=== PATIENT | female | born 1950 | race African-American/Black ===

== ENCOUNTER 2016-11-08 16:28 | Inpatient (IN) | payer BC ==
--- NOTE | ~2016-11-08 | DS ---
Discharge Summary [facility] [address] [place]. [address] NAME: DOUG PICHARDO : 54 STATUS : DIS IN PAT#: [id number] AGE: 66 ADM/REG DATE : 11/08/16 MR#: [id number] REPORT SERV DATE: 12/11/16 DICTATED BY: DIMPLE FAULKNER DATE: 12/11/16 REPORT STATUS : Draft TRANSCRIBED BY: MANJEET DATE: 12/11/16 ADMISSION DATE: 11/08/2016 DISCHARGE DATE: 11/10/2016 SUMMARY Please see dictated H and P and consult notes for full patient presentation and history. BRIEF SUMMARY: The patient was a 66-year-old female with a history of type 2 diabetes, who initially presented to the hospital on 11/08/2016 after she had nausea and vomiting and then had a witnessed cardiac arrest. She was intubated and given CPR in the field with return of spontaneous circulation and then had another PEA arrest in our emergency room here. At that time, it was discovered that she had evidence of a GI bleed for which she underwent upper endoscopy emergently on arrival with bleeding esophagitis found following her arrest. The patient was evaluated by Neurology and was found to be clinically brain . This was explained to the family, and given this, the patient was terminally extubated on the 11/10/2016. Family was at the bedside and grieving appropriately. DICTATED BY: MD ADAM Blanca/MANJEET Dimple Faulkner MD / [id number] CC: Oleg Westbrook M.D. NO PCP
--- NOTE | ~2016-11-08 | CN ---
Consultation Report [facility] [address] [place]. [address] NAME: DOUG YANEZ : 54 STATUS : ADM IN PAT#: [id number] AGE: 66 ADM/REG DATE : 11/08/16 MR#: [id number] REPORT SERV DATE: 11/09/16 DICTATED BY: MICHEL NORIEGA DATE: 11/08/16 REPORT STATUS : Draft TRANSCRIBED BY: MODL DATE: 11/08/16 CONSULTATION NOTE DATE OF CONSULTATION: 11/08/2016 I was consulted for emergency room. ER physician called me this evening with a history of Ms. Yanez had coded at home and she was brought to the hospital ER unresponsive but resuscitated and also on ventilation support. Also gives history of bleeding through mouth and through the rectum and also had bunch of blood suctioned from G-tube also. HISTORY OF PRESENT COMPLAINT: Ms. Yanez is a 66-year-old female admitted with above history as per daughter and sister gave me some history that the patient coded at home and was resuscitated. She was not responsive. As far as past medical history, the patient has diabetes. History comes out from family members is very sketchy. She according to sister has been drinking one fifth or two fifths of alcohol every day for long years. They could not give any history of using any NSAIDs. They could not give me the primary care physician's name, but she is somehow getting diabetes medication from somewhere, and never had any endoscopy as far as sister and daughter know. Other than that, I really do not have much history on her. She has been intubated and unconscious. PAST MEDICAL HISTORY: Diabetes possible and other medical history is not clear. She has a history of alcohol abuse, not sure about any other drug use or any other nase-cdw-ndvevbr medication use. FAMILY HISTORY: Noncontributory. Diabetes runs in the family. SOCIAL HISTORY: As per my H and P. REVIEW OF SYSTEMS: Unable to obtain. PHYSICAL EXAMINATION: VITAL SIGNS: Blood pressure 134/73, pulse 96, saturation 97, respirations 18 per minute, on vent. She is totally supported by vent at this time, not sedated. HEENT: Pupils seem to be both dilated and fixed. HEART: S1, S2. Regular rate and rhythm. ABDOMEN: Soft, somewhat protuberant. No bowel sounds present. NEUROLOGIC: She is in coma, so cannot elicit any neurological exam at this time. LABORATORY DATA: Sodium 132, potassium 3.9, BUN 28, creatinine 2.64, glucose 327, calcium 6.8, albumin 2.5, magnesium 2.1. Alkaline phosphatase 76, ALT 67, AST 308, lipase 118, CPK 7383. Troponin 0.07. TSH 0.674. Lactate 7.5, at one point it was 16.9. WBC of 13.7; hemoglobin 14.9, at one point, it was 11.6, I am not sure whether she received any blood transfusion; hematocrit at this time is 44.2; MCV 92.9; RDW 13.9; platelet 180,000. PTT 25.4, PT 15.6, INR 1.3. Consultation Report [address] [place]. [address] NAME: DOUG YANEZ : 54 STATUS : ADM IN [facility]#: [id number] AGE: 66 ADM/REG DATE : 11/08/16 MR#: [id number] REPORT SERV DATE: 11/09/16 DICTATED BY: MICHEL NORIEGA DATE: 11/08/16 REPORT STATUS : Draft TRANSCRIBED BY: MANJEET DATE: 11/08/16 CT of the abdomen and pelvis noted to have dense airspace consolidative apical and posterior segmental right upper lobe either atelectasis or dense pneumonia, subsegmental atelectasis, small inferior, medial, superior segment, right lower lobe and inferior lingular segment, left lower lobe. ET tube tip 1 cm above the bernabe. CT of the abdomen and pelvis, no acute abdominal or pelvic pathology. There are few small diverticula in the ascending and descending colon and proximal sigmoid colon. No acute diverticulitis. Nonobstructive right nephrolithiasis. Central venous catheter entering the right common femoral vein keeping the right common iliac vein, bladder decompressed with Chavez catheter. Balloon-tipped rectal tube within the rectal vault. ASSESSMENT: Generalized bleeding from upper and lower bleeding, questionable history of nonsteroidal anti-inflammatory drug use, history of chronic alcohol abuse, found at home and called 911 and resuscitated. General condition is not good at this time with pupils both dilated and fixed. PLAN: At this time to evaluate this GI bleeding with upper endoscopy to start with. I discussed the whole issue with family including her general condition and also what I am planning to do including upper endoscopy. They understood it well and agreed with my plan. We will advise further after the procedure. PRANAV/MANJEET Michel Noriega M.D. / [id number] CC: Oleg Westbrook M.D.
--- NOTE | ~2016-11-08 | CN ---
Consultation Report [facility] [address] [place]. [address] NAME: DOUG YANEZ : 54 STATUS : ADM IN [facility]#: [id number] AGE: 66 ADM/REG DATE : 11/08/16 MR#: [id number] REPORT SERV DATE: 11/09/16 DICTATED BY: DORON CARRASCO DATE: 11/08/16 REPORT STATUS : Draft TRANSCRIBED BY: MODL DATE: 11/08/16 CONSULTATION DATE OF CONSULTATION: 11/08/2016 REASON FOR CONSULTATION: Ufr-cn-agejreaf cardiac arrest. HISTORY OF PRESENT ILLNESS: There is limited history as the patient is currently sedated and intubated status post cardiac arrest, without family at the bedside. Per report, the patient was at home in her usual state of health and was found down by her daughter who lives with her. She received about 18 minutes of chest compressions and had return of pulses. She was then transferred to an ambulance where she arrested a second time, and had return of spontaneous circulation after an undetermined time period. She was finally brought to [facility] ER and arrested a third time in the ER where she was coded for 17 minutes with an initial rhythm of PEA arrest, which was reported to be her initial rhythm for the prior two arrests. She otherwise is reported to have a history of hypertension and diabetes, but nothing otherwise. ALLERGIES: NOT AVAILABLE AT THIS TIME. FAMILY HISTORY: Unable to obtain due to the patient's status. SOCIAL HISTORY: Unable to obtain due to the patient's status. REVIEW OF SYSTEMS: As above. HOME MEDICATIONS: Not currently available. PHYSICAL EXAMINATION: VITAL SIGNS: BP 110/60; HR ranging from 110 to 120; sinus tachycardia on telemetry. GENERAL: Morbidly obese. Currently sedated and intubated. NEURO: Awake, alert and oriented x3; no focal deficits, appropriate mood. HEENT: Moist mucous membranes, anicteric sclerae, no nasal discharge. NECK: No JVD, no carotid bruit. LUNGS: ET tube in place. Currently on the ventilator. Coarse breath sounds throughout with rhonchi. Wheezes and rales are absent. CV: Tachycardic. Regular. Normal S1, S2. Possible pericardial rub is auscultated. There is a 2/6 systolic murmur at the cardiac apex. Bedside sonography was not useful due to the patient's body habitus. ABD: Soft, non-tender, non-distended, no rebound or guarding. EXT: Trace edema in her lower extremities bilaterally. Otherwise, 1+ pulses in the radial and dorsalis pedis regions bilaterally. SKIN: Warm, dry and intact; no rash. Consultation Report [facility] [id number] [place]. [address] NAME: DOUG YANEZ : 54 STATUS : ADM IN PAT#: [id number] AGE: 66 ADM/REG DATE : 11/08/16 MR#: [id number] REPORT SERV DATE: 11/09/16 DICTATED BY: DORON CARRASCO DATE: 11/08/16 REPORT STATUS : Draft TRANSCRIBED BY: MODL DATE: 11/08/16 PERTINENT TEST FINDINGS: Lactate 17, GFR 18, creatinine 2.64, albumin 2.5. Chest x-ray without acute cardiopulmonary abnormality; however, with poor inspiratory effort. EKG with sinus rhythm, occasional PACs, normal mean QRS axis, no pathologic Q-waves, no definitive ST T ischemic changes. Troponin 0.07. IMPRESSION AND PLAN: Ms. Yanez is a 66-year-old female with history of diabetes, hypertension, and morbid obesity as well as probable chronic kidney disease, who presents after out of hospital cardiac arrest (PEA) x3, now in shock with multiorgan failure. In reviewing her collective findings, I believe it is not likely that she has cardiac etiology for her arrest, in particular given PEA as her originating rhythm for her arrest, as well as no definitive ischemic changes on her EKG and troponin of only 0.07 at this point in time. Nevertheless, it will be helpful to trend her cardiac enzymes in addition to CK and MB fractions. I will check an EKG tomorrow morning as well as an echocardiogram. Given significant bright red blood per rectum and mouth, it will be helpful to have Gastroenterology evaluate her definitively for active significant GI bleed, which may very well be the causative factor here. Otherwise, wean pressors as tolerated per primary team. In addition, the cardiovascular medications as well as antiplatelet/anticoagulation are not able to currently be started in light of her GI bleed as well as shock status. However, once able, I will start medications when appropriate. VR/MODL Doron Carrasco MD / [id number] CC: Oleg Westbrook M.D.
--- NOTE | ~2016-11-08 | CN ---
Consultation Report [facility] [address] [place]. [address] NAME: DOUG PICHARDO : 54 STATUS : DIS IN PAT#: [id number] AGE: 66 ADM/REG DATE : 11/08/16 MR#: [id number] REPORT SERV DATE: 11/12/16 DICTATED BY: CHRISTY MANZO JR DATE: 11/09/16 REPORT STATUS : Draft TRANSCRIBED BY: MODL DATE: 11/09/16 NEPHROLOGY CONSULTATION DATE OF CONSULTATION: 11/09/2016 REQUESTING PHYSICIAN: Dr. Faulkner. REASON FOR CONSULTATION: Acute renal failure. ASSESSMENT: 1. Presumed acute renal failure, on top of chronic kidney disease. 2. Chronic kidney disease? Stage III with proteinuria. 3. Gyl-df-barostuh cardiac arrest, precipitant unknown, with unknown down time for resuscitation. 4. Repeated resuscitation attempt in the emergency room after pulseless electrical activity arrest. 5. Diffuse gastritis with oozing. 6. Duodenitis with oozing. 7. Features of gastrointestinal blood loss. 8. No demonstrable anemia at this time. 9. Presumed pre-hospital DESIRE inhibitor, according to available home medication list. RECOMMENDATIONS: I agree with the thoughts of other examiners that her prognosis for recovery is grim. Her blood pressure currently is maintained on vasopressors, but she has had sustained hypotensive episodes over the course of her hospitalization. Down time before resuscitation attempts, is unknown. No significant urinary output has yet been documented. I see no current indication of a diuretic trial. If no neurological function, renal replacement therapy will not be indicated. Diuretic challenge will be attempted. Neurology consult pending. Unfortunately, may not have much to offer this lady. HISTORY: A 66-year-old, obese diabetic female, who had been referred to our practice back in 04/2016, but was unable to make her appointment. She apparently experienced a slx-gx-cyqdxhng cardiac arrest with? some delay in resuscitative efforts until EMS arrived. Apparently, there was a subsequent arrest in the emergency room. She has undergone resuscitation, and is on vasopressor support. She had upper and lower GI tract bleeding, and has undergone endoscopy, I refer you to the endoscopist's note. She had hypertension, diabetes, obesity, and was treated for hypertension, diabetes, and apparent hyperlipidemia. PAST MEDICAL HISTORY: Essential hypertension, hyperlipidemia, type 2 diabetes, obesity, proteinuria. Consultation Report [facility] [address] [place]. [address] NAME: DOUG PICHARDO : 54 STATUS : DIS IN PAT#: [id number] AGE: 66 ADM/REG DATE : 11/08/16 MR#: [id number] REPORT SERV DATE: 11/12/16 DICTATED BY: CHRISTY MANZO JR DATE: 11/09/16 REPORT STATUS : Draft TRANSCRIBED BY: MANJEET DATE: 11/09/16 MEDICATIONS: Listed as lisinopril 10 mg daily, Norvasc 5 mg daily, Lipitor 80 mg daily, insulin. ALLERGIES: IDENTIFIED NONE. FAMILY HISTORY: Not available at this moment. SOCIAL HISTORY: Recorded by others is no tobacco or alcohol use. REVIEW OF SYSTEMS: Not available from the client. PHYSICAL EXAMINATION: GENERAL: This is a comatose obese female, on life support. Three pressors. Mechanically ventilated, endotracheally intubated. She has a new PIC in the left upper arm. Cranium is normocephalic. HEENT: No scleral icterus present. No periorbital edema. Jellico sclerae are noted. No nasal discharge or epistaxis. Oropharynx cannot be examined. NECK: Fat, cannot appreciate neck vein distention. I do not hear carotid bruits. LUNGS: Equal air entry on the ventilator, no rales, wheeze, or rhonchi. BREASTS: Not examined. HEART: Tones regular without rub, murmur, or gallops appreciable. ABDOMEN: Obese, distended, soft, somewhat tympanitic. No guarding or tenderness is appreciated. I cannot feel a liver edge. Suprapubically, there is no fullness or tenderness appreciated. A Chavez catheter is in place. Very scant urine production. EXTREMITIES: Without gross edema, there is no distal cyanosis. INTEGUMENT: There is no rash and the turgor is good. Skin is warm and dry. NEUROLOGICAL: She is unresponsive. PSYCHIATRIC: Cannot be assessed. Chest x-ray has been reviewed. Laboratory data has been reviewed. Other examiners notes have been reviewed. JOHNIE/MANJEET Christy Manzo Jr, M.D. / [id number] CC: Oleg Westbrook M.D. [facility]
--- NOTE | ~2016-11-08 | EGD ---
EGD REPORT [facility] [address] [place] [address] NAME: DOUG YANEZ : 54 STATUS : ADM IN PAT#: [id number] AGE: 66 ADM/REG DATE : 11/08/16 MR#: [id number] REPORT SERV DATE: 11/09/16 DICTATED BY: DEXTER NORIEGA DATE: 11/09/16 REPORT STATUS : Draft TRANSCRIBED BY: [employer] DATE: 11/09/16 [facility] Patient Name: Doug Yanez Date of : 1950 Attending MD: DEXTER NORIEGA MD Procedure Date No Time: 11/08/2016 Procedure: Upper GI endoscopy Indications: Hematemesis, Hematochezia, Active gastrointestinal bleeding Medicines: General Anesthesia Complications: No immediate complications. Procedure: After obtaining informed consent, the endoscope was passed under direct vision. Throughout the procedure, the patient's blood pressure, pulse, and oxygen saturations were monitored continuously. The GIF [id number] was introduced through the mouth, and advanced to the third part of duodenum. The upper GI endoscopy was technically difficult and complex due to excessive bleeding. Findings: {skip}edematous. LA Grade D (one or more mucosal breaks involving at least 75% of esophageal circumference) esophagitis with bleeding was found in the lower third of the esophagus. LA Grade C (one or more mucosal breaks continuous between tops of 2 or more mucosal folds, less than 75% circumference) esophagitis with bleeding was found in the middle third of the esophagus. Clotted blood was found in the cardia. Fluid aspiration was performed. Diffuse moderate inflammation with hemorrhage characterized by congestion (edema) and erythema was found in the entire examined stomach. Diffuse severely erythematous mucosa with active bleeding was found in the entire duodenum. Diffuse severe inflammation with hemorrhage characterized by congestion (edema), erosions, erythema and shallow ulcerations was found in the entire duodenum. Impression: - {skip}edematous. - LA Grade D esophagitis. - LA Grade C esophagitis. - Clotted blood in the cardia. Fluid aspiration performed. - Gastritis with hemorrhage. - Erythematous duodenopathy. - Duodenitis with hemorrhage. EGD REPORT [address] [address] NAME: DOUG YANEZ : 54 STATUS : ADM IN [facility]#: [id number] AGE: 66 ADM/REG DATE : 11/08/16 MR#: [id number] REPORT SERV DATE: 11/09/16 DICTATED BY: DEXTER NORIEGA DATE: 11/09/16 REPORT STATUS : Draft TRANSCRIBED BY: [email or web address] DATE: 11/09/16 Recommendation: - Use Protonix (pantoprazole) 80 mg IV daily daily. Procedure Code(s): --- Professional --- 79815, Esophagogastroduodenoscopy, flexible, transoral; diagnostic, including collection of specimen(s) by brushing or washing, when performed (separate procedure) Diagnosis Code(s): --- Professional --- K20.9, Esophagitis, unspecified K92.2, Gastrointestinal hemorrhage, unspecified K29.71, Gastritis, unspecified, with bleeding K31.89, Other diseases of stomach and duodenum K29.81, Duodenitis with bleeding K92.0, Hematemesis K92.1, Melena CPT copyright 2013 [employer]. All rights reserved. The codes documented in this report are preliminary and upon stationary fireman review may be revised to meet current compliance requirements. DEXTER NORIEGA MD 11/09/2016 1:15 PM This report has been signed electronically. Number of Addenda: 0 Note Initiated On: 11/09/2016 12:35 PM Scope Withdrawal Time 0 hours 0 minutes 0 seconds [address] [place] [id number]
--- NOTE | ~2016-11-08 | CN ---
Consultation Report [facility] [address] [place]. [address] NAME: DOUG PICHARDO : 54 STATUS : ADM IN PAT#: [id number] AGE: 66 ADM/REG DATE : 11/08/16 MR#: [id number] REPORT SERV DATE: 11/09/16 DICTATED BY: DATE: REPORT STATUS : Draft TRANSCRIBED BY: MODL DATE: 11/09/16 NEUROLOGY CONSULTATION DATE OF CONSULTATION: 11/09/2016 REASON FOR CONSULT: Anoxic encephalopathy, comatose state. HISTORY OF PRESENT ILLNESS: This is a 66-year-old female who presented to [facility] unresponsive, status post cardiopulmonary resuscitation. The patient was noted to have some nausea and vomiting on the morning of 11/08/2016. With the daughter next checking on her, the patient was found on the floor unresponsive. CPR was initiated and taken over upon EMS arrival. The patient was noted to be in ventricular tachycardia upon EMS evaluation, was resuscitated, intubated. Upon transfer and arrival to the emergency room, the patient required another resuscitation with the patient trying the PEA. The patient's heart rhythm returned after epinephrine as well as ACLS protocol. The patient has not received any sedation or paralytics and no hypothermia protocol was initiated. The patient since then was noted to have unresponsive pupil and no spontaneous movement. No myoclonus or seizure- like activity was otherwise observed. The patient does not appear to have spontaneous breathing above the ventilator settings. No significant change in her neuro status was otherwise noted since resuscitation. The patient was noted to have previous history of hypertension as well as diabetes. SOCIAL HISTORY: No tobacco, alcohol, or recreational drug usage was otherwise reported. No significant family history was reported per medical record. ALLERGIES: THE PATIENT WAS NOTED TO HAVE NO KNOWN DRUG ALLERGIES PER MEDICAL RECORD. REVIEW OF SYSTEMS: Review of systems otherwise unable to be obtained secondary to the patient's comatose state. MEDICATIONS: The patient's current medications consist of Dulera, DuoNeb, thiamine, Vibramycin, Protonix, Zosyn as well as norepinephrine and epinephrine. PHYSICAL EXAMINATION: VITAL SIGNS: Overnight patient was noted to have vital signs with T-max of 100.1, heart rate of 91 to 119, respirations of 16 to 18, and blood pressure of 85 to 162 over 52 to 76. GENERAL: The patient is well developed, well nourished, in no acute distress. CARDIOVASCULAR: Regular rate and rhythm. No carotid bruits were otherwise auscultated. PULMONARY: Examination was clear to auscultation bilaterally. NEUROLOGICAL EXAMINATION: The patient was comatose. No sedation or paralytics was noted. The patient was nonverbal and not following commands at the time of evaluation. Pupil was 4 mm, fixed, no reactivity was otherwise noted. No trpwi-lp-duvzow response was noted. No corneal reflex was noted bilaterally. The patient demonstrated no spontaneous horizontal or Consultation Report [address] [place]. [address] NAME: DOUG PICHARDO : 54 STATUS : ADM IN PAT#: [id number] AGE: 66 ADM/REG DATE : 11/08/16 MR#: [id number] REPORT SERV DATE: 11/09/16 DICTATED BY: DATE: REPORT STATUS : Draft TRANSCRIBED BY: MODL DATE: 11/09/16 vertical eye movement. Cold caloric test is otherwise negative with no eye movement with cold water stimulation to the ears. The patient demonstrated no gag reflex and no grimace to noxious stimulation in bilateral jaws. The patient demonstrated no withdrawal grimace, or posturing to noxious stimulation in all four extremities with the patient demonstrated areflexia throughout. No plantar reflex was otherwise obtained. LABORATORY STUDIES: At the time of evaluation demonstrated white blood cell count of 13.1, hemoglobin of 14.5, hematocrit of 43.4, platelet count of 156. Chemistry panel: Sodium of 133, potassium 3.3, chloride 193, bicarb 26, BUN of 30, creatinine of 2.81, glucose of 187, and calcium 7.0. Serum ABG demonstrated pH of 7.38, pCO2 of 36, PO2 of 82, bicarb of 20, and O2 saturation of 96.1. CT scan of the brain demonstrated diffuse decreased sulci as well as loss of hurley white matter differentiation concerning for diffuse cerebral edema. IMPRESSION: 1. Comatose state. The patient meets current brain criteria. By clinical exam, the patient demonstrated no brain stem reflex and no breathing above the ventilator settings which was set at 18 breaths per minute. No cranial nerve reflexes was otherwise obtained on clinical evaluation including cold caloric test. We will obtain EEG today for evaluation. If no brain activity was seen on EEG study, we are recommending apnea test and advised the family to withdraw care. RECOMMENDATIONS: 1. EEG today. 2. We will proceed with apnea test if no brain activity was otherwise noted on EEG study. [facility]/MODL Bernard Villavicencio MD / [id number] CC: Oleg Westbrook M.D.
--- NOTE | ~2016-11-08 | HP ---
History And Physical [place] [id number] [facility] [place]. [address] NAME: DOUG YANEZ : 54 STATUS : [facility]M [facility]#: [id number] AGE: 66 ADM/REG DATE : 11/08/16 MR#: [id number] REPORT SERV DATE: 11/09/16 DICTATED BY: OLEG QUINTANA DATE: 11/08/16 REPORT STATUS : Draft TRANSCRIBED BY: MODAna Maria DATE: 11/08/16 DATE OF ADMISSION: 11/08/2016 TIME: 1800 hours. LOCATION: Seen in ER #4. HISTORY OF PRESENT ILLNESS: Ms. Yanez is a 66-year-old female, who was home with her daughter today. According to the family, the patient had been a little bit nauseated and had some vomiting earlier this morning. Later in the day, she was with her daughter, the daughter went out of the room, came back, and found the patient collapsed on the floor. CPR was initiated. EMT arrived, they put her in the ambulance, she required intubation and another resuscitation attempt in the ambulance. They came and went to the ER. When she was being evaluated, she went into another PEA arrest, and was able to have return of circulation with epinephrine and ACLS protocol. She is also noting a GI bleed, appears to be upper and lower at this point in time. The patient is seen at the [facility] and has diabetes for which she takes insulin. Her medications are not readily available to me at this time. According to her family, however, she has no known allergies. PAST MEDICAL HISTORY: Significant for diabetes for which she does take insulin and hypertension. They deny any problems where she had a heart disease or strokes in the past, circulatory problems, or kidney problems. Nonsmoker as far as we know. Nondrinker. No operations in the past. ALLERGIES: NO KNOWN ALLERGIES. PHYSICAL EXAMINATION: VITAL SIGNS: Currently, on examination, the patient is on dopamine, orally intubated. Blood pressure 80/40, pulse 110, afebrile. HEENT: Head is normocephalic. Pupils are equal, however, doll's eyes are not present at this point in time. NECK: Very large. CHEST: No bilateral wheezing and rhonchi. CARDIAC: S1 and S2. No murmurs or gallops. ABDOMEN: Obese and nontender. No masses or organomegaly. EXTREMITIES: No clubbing, cyanosis, or edema. Pulses are palpable. NEUROLOGIC: She has some pupil reactivity at this time but no other reactivity. No response to painful stimuli. No reflexes. LABORATORY DATA: Chest x-ray is clear. The arterial blood gas post intubation is 7.16, PCO2 is 53, PO2 of 100, and base excess is -10. Sodium 128, potassium 3.8, glucose 218, and H and H 14 and 43 by I-STAT. Her creatinine is 2.64. Her BUN is 28. Calcium 6.8, total protein 5.8, albumin 2.5, total bilirubin 0.7, alkaline phosphatase 76, ALT 67, AST 178, lipase 118, and troponin 0.07. History And Physical [address] [address] NAME: DOUG YANEZ : 54 STATUS : [facility]#: [id number] AGE: 66 ADM/REG DATE : 11/08/16 MR#: [id number] REPORT SERV DATE: 11/09/16 DICTATED BY: OLEG QUINTANA DATE: 11/08/16 REPORT STATUS : Draft TRANSCRIBED BY: MODL DATE: 11/08/16 EKG done at 1635 hours shows evidence of a junctional tachycardia, premature atrial complexes, rightward axis, prolonged QT, abnormal ECG noted, not consistent with a STEMI. IMPRESSION: 1. Cardiac arrest, etiology unknown. 2. Gastrointestinal bleed, etiology unknown. 3. Morbid obesity. 4. Diabetes mellitus type 2. 5. History of hypertension. 6. Now evidence of cardiogenic shock. PLAN: Plan will be to CT her brain, make sure she has not had an intracerebral event to account for this. Continue Levophed. Will consult Cardiology to see. Attempt to maintain her blood pressure. She has a central line in place in her right femoral vein. She has an IO in place in the right tibia. RP/MODL Oleg Quintana M.D. / [id number] CC: Oleg Quintana M.D.
--- NOTE | ~2016-11-08 | EEG ---
Electroencephalogram [facility] [address] [place]. [address] NAME: DOUG PICHARDO : 54 STATUS : ADM IN PAT#: [id number] AGE: 66 ADM/REG DATE : 11/08/16 MR#: [id number] REPORT SERV DATE: 11/10/16 DICTATED BY: DATE: REPORT STATUS : Draft TRANSCRIBED BY: MODL DATE: 11/10/16 CLINICAL INDICATION: Comatose state post anoxic brain injury. DESCRIPTION: This EEG was performed using 10/20 electrode placement system. During the EEG study, the patient was noted to have EKG artifact persists throughout the EEG evaluation, otherwise no underlying background brain activity was seen. Photic stimulation was performed with no photic driving response. Nail bed pressure was applied to the bilateral upper extremity with the patient noted to have no brain reactivities. No brain activity was seen throughout the EEG evaluation. The patient remains in comatose state during the entire EEG study. INTERPRETATION: This EEG was obtained entirely during the comatose state may be considered abnormal secondary to lack of the brain activity as well as reactivity to stimulation consistent with brain EEG. Clinical correlation is recommended. [facility]/MODL Bernard Villavicencio MD / [id number] CC: Oleg Westbrook M.D.
--- NOTE | ~2016-11-08 | EHP ---
ER History and Physical [address] [place]. [address] NAME: DOUG PICHARDO : 54 STATUS : ADM IN PAT#: [id number] AGE: 66 ADM/REG DATE : 11/08/16 MR#: [id number] REPORT SERV DATE: 11/09/16 DICTATED BY: ALICE LAU DATE: 11/08/16 REPORT STATUS : Draft TRANSCRIBED BY: MODL DATE: 11/08/16 CHIEF COMPLAINT: CPR in progress. HISTORY OF PRESENT ILLNESS: The patient is a 66-year-old female who was found down by her daughter. Per the daughter, the patient was conversant when she walked into the house after work, she went to her bedroom to change and returned to the living room where her mother was to find the patient slumped over and unresponsive. No CPR was begun until EMS arrived. [facility] [employer] arrived and began ACLS CPR and the patient was then intubated by EMS. Brought here after several rounds of epinephrine and 1 amp of bicarb and the patient had returned of spontaneous circulation. On arrival here, the patient did have a pulse, however, shortly after that pulses were not palpable. CPR was begun immediately. You can see the ACLS code sheet for full details of her resuscitative efforts here. We were eventually able to get her return of spontaneous rhythm, appeared to be sinus rhythm with a decent blood pressure requiring a little bit of dopamine. On further evaluation on the patient here, she had had bowel incontinence that appeared to be bloody. This is strongly Hemoccult positive. NG tube was placed and revealed bright red blood in her stomach. I called and discussed this patient with Dr. Westbrook who has agreed to admit the patient. I also called Dr. Figueroa who is going to see the patient upon ICU arrival and do an endoscopic examination of her upper esophagus into stomach. See the paper chart for further details of the patient's history and physical. PAST MEDICAL HISTORY: Hypertension and diabetes. SOCIAL HISTORY: Nonsmoker. Lives with the family. PHYSICAL EXAMINATION: The patient was intubated on scene. Bilateral breath sounds were present upon arrival. However, she was pulseless. Her abdomen was soft and nondistended. Neurologically, she was flaccid with mid dilated pupils or sluggish to respond. No deformities of her musculoskeletal system. LABORATORY DATA: Data review after the patient's arrival here revealed the patient had hematocrit of 37 on arrival with acute renal failure. Hemoccult positive. ASSESSMENT: 1. Cardiac arrest. 2. Respiratory failure. 3. Likely upper gastrointestinal bleed. 4. Hypotensive shock. PLAN: We will place the patient on ICU. Dr. Westbrook from critical care, has actually seen the patient here in the ER. Discussed this patient with Dr. Figueroa, baseball hand sewer, who will come to evaluate the patient endoscopically upon arrival to the ICU. The patient is currently on dopamine for blood pressure support and the patient has been typed and crossed for transfusion. I suspect the patient's hypotension is likely multifactorial given her GI hemorrhage as well as probably some component of cardiogenic shock. ER History and Physical [address] [address] NAME: DOUG PICHARDO : 54 STATUS : ADM IN [facility]#: [id number] AGE: 66 ADM/REG DATE : 11/08/16 MR#: [id number] REPORT SERV DATE: 11/09/16 DICTATED BY: ALICE LAU DATE: 11/08/16 REPORT STATUS : Draft TRANSCRIBED BY: MANJEET DATE: 11/08/16 ALISA/MANJEET Alice Lau DO / [id number] CC: Oleg Westbrook M.D.
[2016-11-08 17:09] LABS: BASOPHILS 0.2 %; BASOPHILS ABSOLUTE 0.01 10/3/uL (0.0-0.16); EOSINOPHILS 0.3 %; EOSINOPHILS ABSOLUTE 0.02 10/3/uL (0.0-0.53); ER CBC TAT 0 Hrs 05 Mins; HEMATOCRIT 36.3 % (36.0-48.0); HEMOGLOBIN 11.6 g/dL (12.0-16.0); IMMATURE GRANULOCYTES 0.8 %; IMMATURE GRANULOCYTES ABSOLUTE 0.05 10/3/uL (0.0-0.11); LYMPHOCYTES ABSOLUTE 1.75 10/3/uL (0.67-4.30); MEAN CORPUSCULAR HEMOGLOB 31.1 pg (26.0-34.0); MEAN CORPUSCULAR VOLUME 97.3 fL (80-100); MEAN PLATELET VOLUME 9.4 fL (9.2-13.0); MONOCYTES 4.6 %; MONOCYTES ABSOLUTE 0.29 10/3/uL (0.21-1.20); NEUTROPHILS 66.1 %; NEUTROPHILS ABSOLUTE 4.13 10/3/uL (2.02-8.40); NUCLEATED RED BLOOD CELLS 0.9 /100WBC (0-0); PLATELET COUNT 155 10/3/uL (150-400); RED CELL COUNT 3.73 10/6/uL (4.0-5.6); WHITE BLOOD CELLS 6.3 10/3/uL (4.5-10.5)
[2016-11-08 17:10] LABS: MANUAL DIFF NO %
[2016-11-08 17:16] LABS: INTERNATIONAL NORMAL RATI 1.4 UNITS (-); PARTIAL THROMBO TIME 32.3 SEC (22.5-37.2); PROTIME (NOT ORD) 17.3 SEC (12.0-14.5)
[2016-11-08 17:28] LABS: A/G RATIO 0.8 (0.7-1.9); ALBUMIN 2.5 G/DL (3.5-5.0); ALKALINE PHOSPHATASE 76 U/L (45-117); BUN (BLOOD UREA NITROGEN) 28 MG/DL (6-23); CHLORIDE, SERUM 85 MMOL/L (96-112); CO2 (CARBON DIOXIDE) 17 MMOL/L (24-34); CREATININE 2.64 MG/DL (0.55-1.02); GFR AFRICAN AMERICAN 21 ML/MIN (>=60); GFR NON AFRICAN AMERICAN 18 ML/MIN (>=60); GLOBULIN 3.3 G/DL (2.5-4.1); GLUCOSE, SERUM 327 MG/DL (60-99); POTASSIUM, SERUM 3.8 MMOL/L (3.5-5.3); SODIUM, SERUM 130 MMOL/L (135-148); TOTAL BILIRUBIN 0.7 MG/DL (0-1.2); TOTAL PROTEIN 5.8 G/DL (6.0-8.5)
[2016-11-08 17:29] LABS: CALCIUM, SERUM 6.8 MG/DL (8.5-10.4)
[2016-11-08 17:30] LABS: TROPONIN I 0.07 NG/ML (<0.05)
[2016-11-08 17:31] LABS: SGPT(ALT) 67 U/L (5-65)
[2016-11-08 17:37] LABS: BAND NEUTROPHILS 11 %; EOSINOPHILS 1 %; EOSINOPHILS ABSOLUTE (CALC) 0.06 10/3/uL (0.0-0.53); ER DIFF TAT 0 Hrs 33 Mins; LYMPHOCYTES 16 %; LYMPHOCYTES ABSOLUTE (CALC) 1.01 10/3/uL (0.67-4.30); MONOCYTES 2 %; MONOCYTES ABSOLUTE (CALC) 0.13 10/3/uL (0.21-1.20); PLATELET ESTIMATE ADQ (ADEQUATE); RBC MORPHOLOGY NORM (NORMAL); SEGMENTED NEUTROPHIL (0) 70 %; TOTAL NUCLEATED CELLS 100
[2016-11-08 17:53] LABS: LACTATE 16.9 MMOL/L (0.3-2.4)
[2016-11-08 18:05] LABS: SGOT(AST) 178 U/L (5-40)
[2016-11-08 18:50] LABS: PROCALCITONIN 0.11 ng/mL (<0.5)
[2016-11-08 20:09] LABS: ALLENS TEST Pos; BE (BASE EXCESS) -3.6 MEQ/L (0 +/- 2.5); CARBOXYHEMOGLOBIN 0.8 % (0-3); HEMOBLOGIN CONTENT 15.5 G/DL (12-16); INSTRUMENT SERIAL # 35151; METHEMOGLOBIN 0.5 % (0-3); MODE CMV; O2 CONTENT 20.7 VOL% (18-24); OPERATOR ID 23712; PCO2 (CO2 TENSION) 47 MMHG (35-45); PO2 (O2 TENSION) 92 MMHG (79-93); SAMPLE Arterial; TIDAL VOLUME 500 ML; pH 7.31 (7.37-7.43)
[2016-11-08 20:19] LABS: BE (BASE EXCESS) -17.8 MEQ/L (0 +/- 2.5); CARBOXYHEMOGLOBIN 1.3 % (0-3); HCO3 (ACTUAL BICARBONATE) 11.8 MEQ/L (23-27); HEMOBLOGIN CONTENT 12.5 G/DL (12-16); INSTRUMENT SERIAL # 8087; METHEMOGLOBIN 0.4 % (0-3); O2 CONTENT 18.7 VOL% (18-24); PCO2 (CO2 TENSION) 42 MMHG (35-45); PO2 (O2 TENSION) 536 MMHG (79-93); SAMPLE Arterial; pH 7.07 (7.37-7.43)
[2016-11-08 20:38] LABS: BASOPHILS 0.1 %; BASOPHILS ABSOLUTE 0.01 10/3/uL (0.0-0.16); EOSINOPHILS 0 %; IMMATURE GRANULOCYTES 0.4 %; IMMATURE GRANULOCYTES ABSOLUTE 0.05 10/3/uL (0.0-0.11); LYMPHOCYTES 5.4 %; LYMPHOCYTES ABSOLUTE 0.74 10/3/uL (0.67-4.30); MEAN CORPUSCULAR HEMOGLOB 31.3 pg (26.0-34.0); MEAN PLATELET VOLUME 9.6 fL (9.2-13.0); MONOCYTES ABSOLUTE 0.41 10/3/uL (0.21-1.20); NEUTROPHILS 91.1 %; NEUTROPHILS ABSOLUTE 12.47 10/3/uL (2.02-8.40); PLATELET COUNT 180 10/3/uL (150-400); RBC DISTRIBUTION WIDTH 13.9 % (12.0-16.0)
[2016-11-08 20:43] LABS: RED CELL COUNT 4.76 10/6/uL (4.0-5.6); WHITE BLOOD CELLS 13.7 10/3/uL (4.5-10.5)
[2016-11-08 20:44] LABS: HEMATOCRIT 44.2 % (36.0-48.0); HEMOGLOBIN 14.9 g/dL (12.0-16.0); MANUAL DIFF NO %; MEAN CORPUS HGB CONC 33.7 g/dL (32.0-36.0); MEAN CORPUSCULAR VOLUME 92.9 fL (80-100)
[2016-11-08 20:47] LABS: INTERNATIONAL NORMAL RATI 1.3 UNITS (-); PARTIAL THROMBO TIME 25.4 SEC (22.5-37.2); PROTIME (NOT ORD) 15.6 SEC (12.0-14.5)
[2016-11-08 21:57] LABS: CK-MB 38.3 NG/ML; CPK 7383 U/L (0-200); POTASSIUM, SERUM 3.9 MMOL/L (3.5-5.3); SODIUM, SERUM 132 MMOL/L (135-148); ULTRASENSITIVE TSH 0.674 MCIU/ML (0.358-3.740)
[2016-11-08 21:58] LABS: CKMB INDEX (NOT ORD) 0.5; SGOT(AST) 308 U/L (5-40)
[2016-11-08 23:46] LABS: HEMATOCRIT 43.1 % (36.0-48.0); HEMOGLOBIN 14.6 g/dL (12.0-16.0)
[2016-11-08 23:58] LABS: INTERNATIONAL NORMAL RATI 1.4 UNITS (-); PARTIAL THROMBO TIME 27.8 SEC (22.5-37.2); PROTIME (NOT ORD) 16.7 SEC (12.0-14.5)
[2016-11-09 00:04] LABS: PHOSPHORUS, SERUM 3.4 MG/DL (2.5-4.5)
[2016-11-09 00:53] LABS: A/G RATIO 0.7 (0.7-1.9); ALBUMIN 2.8 G/DL (3.5-5.0); BUN (BLOOD UREA NITROGEN) 29 MG/DL (6-23); CALCIUM, SERUM 7.3 MG/DL (8.5-10.4); CHLORIDE, SERUM 91 MMOL/L (96-112); CO2 (CARBON DIOXIDE) 17 MMOL/L (24-34); CREATININE 2.49 MG/DL (0.55-1.02); FREE T4 1.33 NG/DL (0.76-1.46); GFR AFRICAN AMERICAN 23 ML/MIN (>=60); GFR NON AFRICAN AMERICAN 20 ML/MIN (>=60); GLOBULIN 3.9 G/DL (2.5-4.1); GLUCOSE, SERUM 310 MG/DL (60-99); PHOSPHORUS, SERUM 5.1 MG/DL (2.5-4.5); SGPT(ALT) 118 U/L (5-65); TOTAL BILIRUBIN 0.8 MG/DL (0-1.2); TOTAL PROTEIN 6.7 G/DL (6.0-8.5)
[2016-11-09 00:57] LABS: ALKALINE PHOSPHATASE 112 U/L (45-117); TROPONIN I 0.29 NG/ML (<0.05)
[2016-11-09 03:59] LABS: ALLENS TEST Pos; BE (BASE EXCESS) -3.6 MEQ/L (0 +/- 2.5); CARBOXYHEMOGLOBIN 0.6 % (0-3); HCO3 (ACTUAL BICARBONATE) 20.8 MEQ/L (23-27); HEMOBLOGIN CONTENT 15.2 G/DL (12-16); INSTRUMENT SERIAL # 35151; METHEMOGLOBIN 0.6 % (0-3); MODE CMV; O2 CONTENT 20.3 VOL% (18-24); OPERATOR ID 13861; PCO2 (CO2 TENSION) 36 MMHG (35-45); PO2 (O2 TENSION) 82 MMHG (79-93); SAMPLE Arterial; TIDAL VOLUME 500 ML; pH 7.38 (7.37-7.43)
[2016-11-09 04:07] LABS: BASOPHILS 0.1 %; BASOPHILS ABSOLUTE 0.01 10/3/uL (0.0-0.16); EOSINOPHILS 0.4 %; EOSINOPHILS ABSOLUTE 0.05 10/3/uL (0.0-0.53); HEMATOCRIT 43.4 % (36.0-48.0); HEMOGLOBIN 14.5 g/dL (12.0-16.0); IMMATURE GRANULOCYTES 0.6 %; IMMATURE GRANULOCYTES ABSOLUTE 0.08 10/3/uL (0.0-0.11); LYMPHOCYTES 15.1 %; LYMPHOCYTES ABSOLUTE 1.98 10/3/uL (0.67-4.30); MEAN CORPUS HGB CONC 33.4 g/dL (32.0-36.0); MEAN CORPUSCULAR VOLUME 92.7 fL (80-100); MEAN PLATELET VOLUME 9.1 fL (9.2-13.0); MONOCYTES 4.3 %; MONOCYTES ABSOLUTE 0.56 10/3/uL (0.21-1.20); NEUTROPHILS 79.5 %; NEUTROPHILS ABSOLUTE 10.43 10/3/uL (2.02-8.40); PLATELET COUNT 156 10/3/uL (150-400); RBC DISTRIBUTION WIDTH 14.1 % (12.0-16.0); RED CELL COUNT 4.68 10/6/uL (4.0-5.6); WHITE BLOOD CELLS 13.1 10/3/uL (4.5-10.5)
[2016-11-09 04:08] LABS: MANUAL DIFF NO %
[2016-11-09 04:11] LABS: INTERNATIONAL NORMAL RATI 1.3 UNITS (-); PARTIAL THROMBO TIME 28.2 SEC (22.5-37.2); PROTIME (NOT ORD) 15.8 SEC (12.0-14.5)
[2016-11-09 04:35] LABS: BUN (BLOOD UREA NITROGEN) 30 MG/DL (6-23); CHLORIDE, SERUM 93 MMOL/L (96-112); CK-MB 31.4 NG/ML; CREATININE 2.81 MG/DL (0.55-1.02); GFR AFRICAN AMERICAN 20 ML/MIN (>=60); GFR NON AFRICAN AMERICAN 17 ML/MIN (>=60); POTASSIUM, SERUM 3.3 MMOL/L (3.5-5.3); SODIUM, SERUM 133 MMOL/L (135-148)
[2016-11-09 04:37] LABS: CKMB INDEX (NOT ORD) 0.6; CO2 (CARBON DIOXIDE) 26 MMOL/L (24-34); CPK 5573 U/L (0-200); GLUCOSE, SERUM 187 MG/DL (60-99); PHOSPHORUS, SERUM 2.4 MG/DL (2.5-4.5)
[2016-11-09 04:38] LABS: TROPONIN I 0.66 NG/ML (<0.05)
[2016-11-09 12:16] LABS: HEMATOCRIT 42.5 % (36.0-48.0); HEMOGLOBIN 14.5 g/dL (12.0-16.0)
[2016-11-09] MEDS ORDERED: NOVOLIN 70/30 (12:18)
[2016-11-09] MEDS ORDERED: NORVASC (12:18)
[2016-11-09] MEDS ORDERED: LIPITOR (12:19)
[2016-11-09] MEDS ORDERED: LISINOPRIL (12:19)
[2016-11-09] MEDS ORDERED: *UNABLE3 (12:19)
[2016-11-09 12:52] LABS: CK-MB 24.5 NG/ML
[2016-11-09 12:55] LABS: CKMB INDEX (NOT ORD) 0.6; TROPONIN I 0.78 NG/ML (<0.05)
[2016-11-09 14:53] LABS: ASCORBIC ACID (UR NOT ORDER) NEG (NEG); BILIRUBIN, URINE NEGATIVE (NEG); ER URINALYSIS TAT 0 Hrs 00 Mins; KETONE, URINE NEGATIVE (NEG); LEUKOCYTE ESTERASE(NOT OR TRACE (NEG); NITRITE (URINE) NEG (NEG); WBC (NOT ORDERED) (RFLEX) 19 (0-5)
[2016-11-09 20:56] LABS: CK-MB 15.3 NG/ML; PHOSPHORUS, SERUM 1.8 MG/DL (2.5-4.5); POTASSIUM, SERUM 3.7 MMOL/L (3.5-5.3)
[2016-11-09 21:00] LABS: CKMB INDEX (NOT ORD) 0.5; TROPONIN I 0.63 NG/ML (<0.05)
[2016-11-10 04:03] LABS: BASOPHILS 0.3 %; BASOPHILS ABSOLUTE 0.03 10/3/uL (0.0-0.16); BUN (BLOOD UREA NITROGEN) 29 MG/DL (6-23); CALCIUM, SERUM 7.1 MG/DL (8.5-10.4); CHLORIDE, SERUM 85 MMOL/L (96-112); EOSINOPHILS 2.1 %; EOSINOPHILS ABSOLUTE 0.22 10/3/uL (0.0-0.53); GLUCOSE, SERUM 189 MG/DL (60-99); HEMATOCRIT 39.3 % (36.0-48.0); HEMOGLOBIN 13.5 g/dL (12.0-16.0); IMMATURE GRANULOCYTES 0.6 %; IMMATURE GRANULOCYTES ABSOLUTE 0.06 10/3/uL (0.0-0.11); LYMPHOCYTES 18.9 %; MANUAL DIFF NO %; MEAN CORPUS HGB CONC 34.4 g/dL (32.0-36.0); MEAN CORPUSCULAR HEMOGLOB 31.8 pg (26.0-34.0); MEAN CORPUSCULAR VOLUME 92.5 fL (80-100); MEAN PLATELET VOLUME 9.6 fL (9.2-13.0); MONOCYTES 5.6 %; MONOCYTES ABSOLUTE 0.59 10/3/uL (0.21-1.20); NEUTROPHILS 72.5 %; PLATELET COUNT 102 10/3/uL (150-400); POTASSIUM, SERUM 3.9 MMOL/L (3.5-5.3); RBC DISTRIBUTION WIDTH 14.3 % (12.0-16.0); RED CELL COUNT 4.25 10/6/uL (4.0-5.6); SGOT(AST) 155 U/L (5-40); SGPT(ALT) 60 U/L (5-65); SODIUM, SERUM 129 MMOL/L (135-148); TOTAL BILIRUBIN 0.9 MG/DL (0-1.2); WHITE BLOOD CELLS 10.6 10/3/uL (4.5-10.5)
[2016-11-10 04:05] LABS: A/G RATIO 0.5 (0.7-1.9); ALBUMIN 2.1 G/DL (3.5-5.0); ALKALINE PHOSPHATASE 82 U/L (45-117); CO2 (CARBON DIOXIDE) 33 MMOL/L (24-34); CREATININE 3.44 MG/DL (0.55-1.02); GFR AFRICAN AMERICAN 15 ML/MIN (>=60); GFR NON AFRICAN AMERICAN 13 ML/MIN (>=60); GLOBULIN 3.9 G/DL (2.5-4.1); PHOSPHORUS, SERUM 3.4 MG/DL (2.5-4.5)
== END 2016-11-10 09:55 | disposition expired | DRG 981 ==
LOC: ER 16:28 → CCU 17:43
PROVIDERS: Hospitalist; Internal Medicine; Internal Medicine Critical Care Medicine; Internal Medicine Gastroenterology
PROC: 0BH17EZ Insertion of Endotracheal Airway into Trachea, Via Natural or Artificial Opening (ICD-10-PCS; 2016-11-08)
PROC: 06HM33Z Insertion of Infusion Device into Right Femoral Vein, Percutaneous Approach (ICD-10-PCS; 2016-11-08)
PROC: 0DJ08ZZ Inspection of Upper Intestinal Tract, Via Natural or Artificial Opening Endoscopic (ICD-10-PCS; 2016-11-08)
PROC: 30233N1 Transfusion of Nonautologous Red Blood Cells into Peripheral Vein, Percutaneous Approach (ICD-10-PCS; 2016-11-08)
PROC: 0D998ZZ Drainage of Duodenum, Via Natural or Artificial Opening Endoscopic (ICD-10-PCS; principal; 2016-11-08 21:28)
PROC: 5A1945Z Respiratory Ventilation, 24-96 Consecutive Hours (ICD-10-PCS; principal; 2016-11-08 21:28)
DX: I47.2 Ventricular tachycardia (principal); G92 Toxic encephalopathy; R57.0 Cardiogenic shock; I46.9 Cardiac arrest, cause unspecified; R40.20 Unspecified coma; G93.1 Anoxic brain damage, not elsewhere classified; K29.71 Gastritis, unspecified, with bleeding; K29.81 Duodenitis with bleeding; N17.9 Acute kidney failure, unspecified; E87.1 Hypo-osmolality and hyponatremia; Z68.41 Body mass index [BMI] 40.0-44.9, adult; N18.3 Chronic kidney disease, stage 3 (moderate); E11.22 Type 2 diabetes mellitus with diabetic chronic kidney disease; E66.01 Morbid (severe) obesity due to excess calories; K29.70 Gastritis, unspecified, without bleeding; E78.5 Hyperlipidemia, unspecified; F10.21 Alcohol dependence, in remission; I12.9 Hypertensive chronic kidney disease with stage 1 through stage 4 chronic kidney disease, or unspecified chronic kidney disease; Z79.4 Long term (current) use of insulin
CPT/HCPCS: 31720; 36415; 36569; 36600; 70450; 71010; 71250; 74000; 74176; 80048; 80053; 81001; 82330; 82533; 82550; 82553; 82585; 82803; 82805; 82947; 82962; 83036; 83605; 83690; 83735; 84100; 84132; 84145; 84295; 84439; 84443; 84484; 85014; 85018; 85025; 85610; 85730; 86850; 86900; 86901; 86920; 87040; 87070; 87077; 87150; 87186; 87205; 87449; 87641; 92950; 93005; 94002; 94003; 94640; 94770; 95816; 96365; 96366; 96375; 99291; A9270-GY; C1751; C8929; C9113; J0610; J2543; J3411; P9016; Q9957